=== PATIENT | female | born 1990 | race African-American/Black ===

== ENCOUNTER 2016-12-08 04:50 | Emergency (ER) | payer OTHER, MEDICAID ==
[~2016-12-08] VITALS: Ht 157.5 cm; Wt 78.6 kg
[2016-12-08 07:09] LABS: BASOPHILS % 0.4 % (0.0-2.0); EOSINOPHILS % 0.6 % (0.0-5.0); HEMATOCRIT. 34.4 % (36.0-48.0); HEMOGLOBIN. 11.9 g/dL (12.0-16.0); LYMPHOCYTES % 23.3 % (20.0-50.0); MEAN CORPUSCULAR HEMOGLOBIN 30.5 pg (28.0-32.0); MEAN CORPUSCULAR HGB CONC 34.7 g/dL (31.0-37.0); MEAN CORPUSCULAR VOLUME 87.7 fL (81.0-99.0); MEAN PLATELET VOLUME 8.8 fl (7.4-10.4); MONOCYTES % 5.7 % (2.0-8.0); PLATELET 218 x1000/uL (130-400); RED BLOOD CELL COUNT 3.92 mill/uL (4.2-5.4); RED CELL DISTRIBUTION WIDTH 13.1 % (11.6-14.6); WHITE BLOOD COUNT 11.4 x1000/uL (4.5-11.0)
[2016-12-08 08:37] VITALS: BP 107/52
== END 2016-12-08 10:10 | disposition home or self-care (01) ==
LOC: ER 04:51
DX: O20.0 Threatened abortion (principal); O44.22 Partial placenta previa NOS or without hemorrhage, second trimester; Z3A.15 15 weeks gestation of pregnancy
CPT/HCPCS: 36415; 76805; 81025; 84702; 85025; 86850; 86900; 99285